=== PATIENT | male | born 1965 | race Caucasian/White ===

== ENCOUNTER 2017-05-15 08:05 | Emergency (ER) | payer OTHER ==
[~2017-05-15] VITALS: Ht 180.3 cm; Wt 100.3 kg
[~2017-05-15 08:05] MED LIST: ACCUPRIL20 MG PO; ALPRAZOLAM ER1 MG PO; ALPRAZOLAM0.25 M2 PO; AMLODIPINE BESY10 MG PO; AMLODIPINE BESYL5 MG PO; AUGMENTIN875 MG PO; CATAPRES0.1 MG PO; CLONIDINE HCL0.1 MG PO; DICYCLOMINE HCL20 MG PO; FLUOXETINE HCL20 MG PO; HYDROCHLOROTH12.5 M3 PO; IBUPROFEN800 MG PO; INDOCIN25 MG PO; ISORDIL,SORBITRA5 MG PO; KLOR-CON M1010 MEQ PO; LAC-DOSE3000 UNIT PO; LEVOTHYROXINE50 MCG PO; LISINOPRIL40 MG PO; LOSARTAN POTAS100 MG PO; METAXALONE800 MG PO; METOPROLOL TART25 MG PO; MIRTAZAPINE7.5 MG PO; MOBIC15 MG PO; NALTREXONE PO; NICOTINE PATCH1 EAC2 TD; NORCO 7.5/321 TABLET PO; NORVASC5 MG PO; OPANA ER40 MG PO; OXYCODONE-APAP1 EACH PO; OYSTER SHELL 51 EACH PO; PERCOCET 5/31 TABLET PO; PRINIVIL20 MG PO; PROTONIX40 MG PO; PROZAC20 MG PO; QUETIAPINE FUM200 MG PO; SPIRIVA1 INHALATI IH; SUBOXONE 8 MG-1 EAC2 SL; TRAMADOL HCL50 MG PO; TRAZODONE HCL50 MG PO; VALIUM5 MG PO; VITAMIN D250000 UNIT PO; XALATAN2.5 ML BOTH EYES; XANAX1 MG PO; ZOFRAN4 MG PO
[2017-05-15] MEDS ORDERED: NAPROSYN500 MG PO (09:36)
[2017-05-15 09:46] VITALS: BP 144/93
== END 2017-05-15 09:47 | disposition home or self-care (01) ==
LOC: EME 08:05
DX: M17.12 Unilateral primary osteoarthritis, left knee (principal); I10 Essential (primary) hypertension; B19.20 Unspecified viral hepatitis C without hepatic coma
CPT/HCPCS: 73564; 99281; 99284

== ENCOUNTER 2017-08-25 17:38 | Emergency (ER) | payer OTHER ==
[~2017-08-25] VITALS: Ht 182.9 cm; Wt 89.0 kg
[~2017-08-25 17:38] MED LIST changes: +NAPROSYN500 MG PO
[2017-08-25 19:06] LABS: HEMATOCRIT 48.3 % (38.0-50.0); MCH 31.4 PG (29.0-34.0); MCHC 35.6 G/DL (30.0-36.0); MCV 88.3 FL (86-99); MEAN PLAT.VOLUME 10.4 uM^3 (9.0-12.4); PLATELET COUNT 226 K/uL (156-360); RBC DIS.WIDTH-CV 11.8 % (11.8-14.6); RBC DIS.WIDTH-SD 38.2 % (39-53); RED BLOOD COUNT 5.47 M/uL (4.00-5.50); WHITE BLOOD COUNT 15.7 K/uL (4.1-10.2)
[2017-08-25 19:15] LABS: CHLORIDE 102 mEq/L (99-109); POTASSIUM 4.7 mEq/L (3.7-5.4); SODIUM 137 mEq/L (136-147)
[2017-08-25 19:16] LABS: GLUCOSE 99 mg/dL (70-99)
[2017-08-25 19:18] LABS: ANION GAP 11 MEQ/L (2-14)
[2017-08-25 19:20] LABS: GFR ESTIMATE (CALCULATED) 57 mL/min/
[2017-08-25 19:21] LABS: UREA NITROGEN (BUN) 22 mg/dL (9-23)
[2017-08-25 19:27] LABS: TROP-I INTERPRETATION NEGATIVE; TROPONIN-I < 0.01 ng/mL (0.0-0.30)
[2017-08-25] MEDS ORDERED: LOPRESSOR50 MG PO (21:47)
[2017-08-25] MEDS ORDERED: NORVASC5 MG PO (23:15)
[2017-08-25] MEDS ORDERED: ROBAXIN750 MG PO (23:15)
[2017-08-25] MEDS ORDERED: MOTRIN600 MG PO (23:15)
[2017-08-25 23:23] VITALS: BP 130/98
== END 2017-08-25 23:25 | disposition home or self-care (01) ==
LOC: EME 17:38
DX: R51 Headache (principal); I10 Essential (primary) hypertension; M54.2 Cervicalgia; M43.6 Torticollis
CPT/HCPCS: 70450; 71020; 80048; 84484; 85027; 93005; 99281; 99284; J2765; J7030

== ENCOUNTER 2018-07-15 07:43 | Emergency (ER) | payer OTHER ==
[~2018-07-15] VITALS: Ht 180.3 cm; Wt 90.1 kg
[~2018-07-15 07:43] MED LIST changes: +LOPRESSOR50 MG PO; +MOTRIN600 MG PO; +ROBAXIN750 MG PO
[2018-07-15 08:23] LABS: HEMATOCRIT 48.7 % (38.0-50.0); HEMOGLOBIN 17.6 G/DL (12.5-16.6); MCH 31.9 PG (29.0-34.0); MCHC 36.1 G/DL (30.0-36.0); MCV 88.4 FL (86-99); PLATELET COUNT 253 K/uL (156-360); RBC DIS.WIDTH-CV 12.1 % (11.8-14.6); RBC DIS.WIDTH-SD 39.2 % (39-53); RED BLOOD COUNT 5.51 M/uL (4.00-5.50); WHITE BLOOD COUNT 10.7 K/uL (4.1-10.2)
[2018-07-15 08:33] LABS: CHLORIDE 106 mEq/L (99-109); POTASSIUM 3.8 mEq/L (3.7-5.4); SODIUM 138 mEq/L (136-147)
[2018-07-15 08:35] LABS: GLUCOSE 92 mg/dL (70-99)
[2018-07-15 08:39] LABS: CREATININE 1.2 mg/dL (0.6-1.3); GFR ESTIMATE (CALCULATED) > 59 mL/min/ (58.99-99999)
[2018-07-15 08:40] LABS: UREA NITROGEN (BUN) 12 mg/dL (9-23)
[2018-07-15 08:41] LABS: CREATINE KINASE 161 IU/L (1-294); TOTAL CK 161 IU/L (1-294)
[2018-07-15 08:45] LABS: TROP-I INTERPRETATION NEGATIVE; TROPONIN-I 0.04 ng/mL (0.0-0.30)
[2018-07-15 08:47] LABS: CK-MB 3.1 ng/mL (0.0-4.9); CKMB RELATIVE INDEX 1.9 (0.0-3.9)
[2018-07-15 09:19] VITALS: BP 179/132
== END 2018-07-15 09:22 | disposition left against medical advice (07) ==
LOC: EME 07:43
PROVIDERS: Nurse Practitioner Family
DX: R07.89 Other chest pain (principal); T40.5X5A Adverse effect of cocaine, initial encounter; I10 Essential (primary) hypertension; F11.10 Opioid abuse, uncomplicated; F10.20 Alcohol dependence, uncomplicated; I44.4 Left anterior fascicular block; R94.31 Abnormal electrocardiogram [ECG] [EKG]; K74.60 Unspecified cirrhosis of liver; M19.90 Unspecified osteoarthritis, unspecified site; B19.20 Unspecified viral hepatitis C without hepatic coma; F41.9 Anxiety disorder, unspecified; F31.9 Bipolar disorder, unspecified; F17.200 Nicotine dependence, unspecified, uncomplicated; Z86.69 Personal history of other diseases of the nervous system and sense organs; Z88.8 Allergy status to other drugs, medicaments and biological substances
CPT/HCPCS: 71046; 80048; 82550; 82553; 84484; 85027; 93005; 99281; 99285; J7030